=== PATIENT | male | born 1990 | race Two or more races ===

== ENCOUNTER 2018-02-27 09:43 | Emergency (ER) | payer OTHER ==
[~2018-02-27] VITALS: Ht 170.2 cm; Wt 126.3 kg
[2018-02-27 09:56] VITALS: Ht 170.2 cm; Wt 126.3 kg
[2018-02-27 11:36] VITALS: BP 143/73
== END 2018-02-27 11:36 | disposition home or self-care (01) ==
LOC: ED 09:43
DX: J36 Peritonsillar abscess (principal); H92.02 Otalgia, left ear
CPT/HCPCS: J0696; J2001; Q0092